=== PATIENT | female | born 1940 | race Caucasian/White ===

== ENCOUNTER 2021-02-24 01:14 | Day surgery (SDC) | payer MEDICARE, SELFPAY ==
[2021-02-08 12:57] VITALS: BMI 29.9
[2021-02-24 08:16] VITALS: BP 125/71; PULSE 99; RESP 18; TEMP 36.7; O2SAT 96
--- NOTE | 2021-02-24 08:22 | WPDANESEPPF ---
Anes - Initial Pre Proc Eval Procedure: Operation Date: 02/24/21 09:30 Proposed Procedures p Colonoscopy - Ananda Willett MD Date/Time: 02/24/21 08:22 Surgeon: Ananda Willett MD Pre Op Diagnosis: diarrhea Patient Data Age: 80 Gender: F Height: 1.68 m Weight: 82 kg Last Vital Signs Temp 98.1 F 02/24/21 08:16 Pulse 99 02/24/21 08:16 Resp 18 02/24/21 08:16 BP 125/71 02/24/21 08:16 Pulse Ox 96 02/24/21 08:16 Allergies Allergy/AdvReac Type Severity Reaction Status Date / Time No Known Allergies Allergy Verified 02/24/21 08:11 Home Medications Medication Instructions Recorded Confirmed Type dicyclomine 10 mg PO TID PRN 02/08/21 02/08/21 History lisinopril 10 mg PO DAILY 02/08/21 02/08/21 History meloxicam 15 mg PO DAILY 02/08/21 02/08/21 History Patient hx anesthesia problems: none Family hx anesthesia problems: none Results Review: All pre-operative results and documents have been reviewed as part of the pre-operative evaluation. [facility] Past Medical History Medical History (Updated 02/24/21 @ 08:19 by Stevan Bullard MD) Hypertension Social History Social History Living arrangements: alone Spiritual care concerns: No Anes - Eval Final PreProcedure Day of Procedure 02/24/21 08:22 Patient weight: overweight Heart: regular rate and rhythm Lungs: clear to auscultation Airway: Mallampati scale class III Neurological: alert and oriented Last oral intake: >/= 8 hours ASA classification: II Emergent: no Anesthetic plan: proceed Anesthesia type and monitoring: general GIVS and standard monitoring Results Review: All pre-operative results and documents have been reviewed as part of the pre-operative evaluation. Informed Consent: The patient's anesthetic plan and its attendant risks and benefits were discussed with the patient/family/POA. Questions were solicited and answers provided to the satisfaction of the patient/family/POA.
[2021-02-24] MEDS: LACTATED RINGERS 1,000 ML 150 ML IV CONT (08:30)
--- NOTE | 2021-02-24 08:46 | WPDGICN ---
Assessment and Plan Assessment and plan (1) IBS (irritable bowel syndrome): Code(s): K58.9 - Irritable bowel syndrome without diarrhea Status: Acute Assessment and Plan: Patient with long history of irritable bowel syndrome. Agree with Bentyl. High-fiber diet is advised. Further recommendations will be given after endoscopy. (2) Diarrhea: Code(s): R19.7 - Diarrhea, unspecified Status: Acute Assessment and Plan: Patient has recent change in bowel habits with increasing episodes of poorly controlled diarrhea. Likely this is related either to spasm such as irritable bowel syndrome or food in dietary intolerance. Plan is to increase her fiber to FiberCon tabs 4-6 tablets p.o. daily. Patient may also benefit from a food diary to see if there is any dietary intolerance contributing to her symptoms. A colonoscopy will be performed to exclude organic disease. GI Consult Note Consult date/time: 02/24/21 08:46 HPI: Joanna Sims is a 80 year old female Presents for colonoscopy. Patient has a long history of irritable bowel syndrome. Since November has had episodes of sudden uncontrolled bowel movements. She denies any bleeding. She had a notes only occasional cramping associated with these are urgent bowel habits. Patient recently has tried dicyclomine with some improvement of symptoms. She takes 1 fiber pill a day. Patient has avoided fruits and vegetables because of this diarrhea. Her family history is noncontributory. Review of Systems Review of Systems: All systems reviewed & are unremarkable except as noted in HPI and below PMFSH Past Medical History Medical History (Updated 02/24/21 @ 08:48 by Ananda Willett MD) Hypertension Social History Social History Living arrangements: alone Spiritual care concerns: No Meds Home Medications and Allergies Home Medications Medication Instructions Recorded Confirmed Type dicyclomine 10 mg PO TID PRN 02/08/21 02/08/21 History lisinopril 10 mg PO DAILY 02/08/21 02/08/21 History meloxicam 15 mg PO DAILY 02/08/21 02/08/21 History Allergies Allergy/AdvReac Type Severity Reaction Status Date / Time No Known Allergies Allergy Verified 02/24/21 08:11 Vital Signs Vital Signs - 24 hr 02/24/21 08:16 Temperature 98.1 F Pulse Rate 99 Respiratory Rate 18 Blood Pressure 125/71 Pulse Oximetry 96 Exam Narrative: Physical exam reveals patient be alert. Vital signs stable. HEENT exam is unremarkable. Patient is anicteric. Lungs are clear to auscultation and percussion. Heart is without murmur or extra sounds. Abdominal exam bowel sounds are present soft nontender with no organomegaly. Digital external rectal exam is normal.
[2021-02-24 09:14] VITALS: BP 79/33; PULSE 73; RESP 21; O2SAT 97
[2021-02-24 09:24] VITALS: BP 80/59; PULSE 69; RESP 16; O2SAT 99
[2021-02-24 09:34] VITALS: BP 111/52; PULSE 67; RESP 12; O2SAT 100
== END 2021-02-24 09:50 | disposition home or self-care (01) ==
PROVIDERS: PCP Nurse Practitioner Family; Visit Provider Internal Medicine Gastroenterology
PROC: 0DJD8ZZ Inspection of Lower Intestinal Tract, Via Natural or Artificial Opening Endoscopic (ICD-10-PCS; CPT 45378; principal; 2021-02-24 09:30)
DX: K58.0 Irritable bowel syndrome with diarrhea (principal); K57.30 Diverticulosis of large intestine without perforation or abscess without bleeding; K64.8 Other hemorrhoids; I10 Essential (primary) hypertension
CPT/HCPCS: 45378; J2704; J7120